=== PATIENT | male | born 1960 | race American Indian/Alaskan Native ===

== ENCOUNTER 2022-12-26 10:46 | Inpatient (IN) | payer OTHER ==
[2022-12-26] MEDS ORDERED: Sodium Chloride 0.9% 10 ML Syringe FLUSH PRN (11:02)
[2022-12-26] MEDS ORDERED: Aspirin 81 MG Tab.Chew PO ONE (11:02)
[2022-12-26] MEDS ORDERED: Diltiazem 25 MG/5 ML SDV IVPUSH ONE (11:09)
[2022-12-26] MEDS ORDERED: Diltiazem 125 MG in Sodium Chloride 0.9% 100 ML IV SCH (11:15)
[2022-12-26] MEDS ORDERED: Propofol 200 MG/20 ML SDV IVPUSH ONE (11:27)
[2022-12-26 11:37] LABS: ESTIMATED GFR 68 mL/min (>60)
[2022-12-26] MEDS ORDERED: Metoprolol Tartrate 25 MG Tab PO SCH (17:00)
[2022-12-26] MEDS: Enoxaparin 120 MG/0.8 ML Syringe SUBCUT SCH (17:32)
[2022-12-26] MEDS ORDERED: Meloxicam 7.5 MG Tab PO PRN (17:35)
[2022-12-26] MEDS ORDERED: 50% Dextrose in Water 50 ML Syringe IVPUSH PRN (17:36)
[2022-12-26] MEDS ORDERED: Metoprolol Tartrate 5 MG/5 ML SDV IVPUSH PRN (18:05)
[2022-12-26] MEDS: Insulin Regular, Human 100 Units/ML 3 ML Vial SUBCUT SCH (19:57)
[2022-12-27] MEDS: Metoprolol Tartrate 25 MG Tab PO SCH ×2 (00:03→05:47)
[2022-12-27 07:37] LABS: HEMOGLOBIN A1C 5.8 %
[2022-12-27] MEDS: Insulin Regular, Human 100 Units/ML 3 ML Vial SUBCUT SCH (08:00)
[2022-12-27] MEDS: Enoxaparin 120 MG/0.8 ML Syringe SUBCUT SCH (08:01)
[2022-12-27] MEDS ORDERED: Rosuvastatin 10 MG Tab PO SCH (09:00)
[2022-12-27] MEDS ORDERED: Rivaroxaban 10 MG Tab PO SCH (09:45)
[2022-12-28] MEDS ORDERED: Lisinopril 2.5 MG Tab PO SCH (09:00)
== END 2022-12-27 10:51 | disposition home or self-care (01) | DRG 310 ==
LOC: JD.ED 10:46 → UNDOADMIN 14:30 → JD.ICU 14:30 → JD.ED 14:59
PROVIDERS: ADMIT Internal Medicine Cardiovascular Disease; ATTEND Internal Medicine Cardiovascular Disease
PROC: 5A2204Z Restoration of Cardiac Rhythm, Single (ICD-10-PCS; principal; 2022-12-26)
DX: I48.91 Unspecified atrial fibrillation (principal); I48.0 Paroxysmal atrial fibrillation; E78.00 Pure hypercholesterolemia, unspecified; E11.9 Type 2 diabetes mellitus without complications; I10 Essential (primary) hypertension; E78.5 Hyperlipidemia, unspecified; G47.30 Sleep apnea, unspecified; E66.9 Obesity, unspecified; Z79.01 Long term (current) use of anticoagulants; Z79.899 Other long term (current) drug therapy; Z88.5 Allergy status to narcotic agent; Z68.31 Body mass index [BMI] 31.0-31.9, adult
CPT/HCPCS: 36415; 71045; 80053; 84443; 84484; 85025; 93005; A9270; J2704; J3490 ×3; 82947; 83036; 83735; 96365; 96366; 96376; 99152; 99222; 99238; 99285-25; J1650; J1815-GY

== ENCOUNTER 2023-01-11 18:10 | Emergency (ER) | payer BC, OTHER | END 2023-01-11 19:08 | disposition home or self-care (01) | LOC: JD.ED 18:10 | DX: K61.1 Rectal abscess (principal); I48.91 Unspecified atrial fibrillation; E78.00 Pure hypercholesterolemia, unspecified; I10 Essential (primary) hypertension; Z88.5 Allergy status to narcotic agent; Z79.01 Long term (current) use of anticoagulants; Z79.899 Other long term (current) drug therapy; Z72.0 Tobacco use | CPT/HCPCS: 99283 ==

== ENCOUNTER 2023-01-13 11:48 | Day surgery (SDC) | payer BC, OTHER ==
[~2023-01-13 11:48] MED LIST: Lidocaine 1% 2 ML ONE; Lidocaine 1% with EPINEPHrine 1:100,000 20 ML MDV ONE; Ondansetron 4 MG/2 ML SDV ONE; Propofol 200 MG/20 ML SDV ONE; Rocuronium 50 MG/5 ML Vial ONE; fentaNYL 100 MCG/2 ML SDV ONE
[2023-01-13] MEDS ORDERED: metroNIDAZOLE/Normal Saline 100 ML ONE (12:11)
[2023-01-13] MEDS ORDERED: Sugammadex Sodium 200 MG/2 ML VIAL ONE (12:16)
[2023-01-13] MEDS ORDERED: Ondansetron 4 MG/2 ML SDV IVPUSH PRN (12:44)
[2023-01-13] MEDS ORDERED: Ketorolac 30 MG/ML SDV IM SCH (12:46)
[2023-01-13] MEDS: fentaNYL 100 MCG/2 ML SDV IVPUSH PRN ×2 (12:55→13:11)
[2023-01-13] MEDS ORDERED: Ketorolac 30 MG/ML SDV IVPUSH SCH (12:56)
== END 2023-01-13 14:26 | disposition home or self-care (01) ==
LOC: JD.SDS 11:48
PROVIDERS: ATTEND Specialist
DX: L02.215 Cutaneous abscess of perineum (principal); I10 Essential (primary) hypertension; E78.00 Pure hypercholesterolemia, unspecified; I48.91 Unspecified atrial fibrillation; Z88.5 Allergy status to narcotic agent
CPT/HCPCS: 10061; 36415; 80048; 85025; 87070; 87075; 87205; J1885; J2405; J2704; J3010; J3490; 00902

== ENCOUNTER 2023-08-08 21:07 | Inpatient (IN) | payer BC, OTHER ==
[2023-08-08 22:21] LABS: BASOPHILS PERCENT AUTO 0.6 % (0.0-1.0); EOSINOPHILS ABSOLUTE AUTO 0.2 K/mm3 (0.0-0.4); HEMATOCRIT 42.1 % (42.0-52.0); HEMOGLOBIN 13.9 gm/dl (14.0-18.0); IMMATURE GRAN ABSOLUTE AUTO 0.01 K/mm3 (0.00-0.05); IMMATURE GRAN PERCENT AUTO 0.2 % (0.0-0.4); LYMPHOCYTES ABSOLUTE AUTO 2.3 K/mm3 (1.0-4.8); LYMPHOCYTES PERCENT AUTO 36.5 % (24.0-44.0); MEAN CORPUSCULAR HEMOGLOBIN 31.8 pg (28.0-32.0); MEAN CORPUSCULAR VOLUME 96.3 fl (83.0-99.0); MEAN PLATELET VOLUME 9.1 fl (9.4-12.4); MONOCYTES ABSOLUTE AUTO 0.5 K/mm3 (0.0-0.8); MONOCYTES PERCENT AUTO 8.5 % (0.0-8.0); NEUTROPHILS ABSOLUTE AUTO 3.3 K/mm3 (1.8-7.7); NEUTROPHILS PERCENT AUTO 51.2 % (41.0-71.0); PLATELET COUNT,PLT 256 K/mm3 (150-400); RED BLOOD CELL COUNT 4.37 M/mm3 (4.52-5.90); WHITE BLOOD CELL COUNT,WBC 6.38 K/mm3 (3.9-11.3)
[2023-08-08] MEDS ORDERED: Sodium Chloride 0.9% 10 ML Syringe FLUSH PRN (22:23)
[2023-08-08 22:40] LABS: A/G RATIO 0.9 (1-2); ALBUMIN 3.4 g/dl (3.4-5.0); ANION GAP 9.2 (5-15); BILIRUBIN TOTAL 0.3 mg/dL (0.2-1.0); BUN/CREATININE RATIO 18.2 (14-18); CALCIUM 8.9 mg/dL (8.5-10.1); CREATININE 1.1 mg/dL (0.7-1.3); EST CRCL DRUG DOSING (CG) 84.39 mL/min; POTASSIUM,K 4.2 mEq/L (3.5-5.1); PROTEIN TOTAL,TP 7.2 g/dl (6.4-8.2)
[2023-08-08] MEDS ORDERED: Iopamidol 755 Mg/ML 100 ML Bottle IVPUSH ONE (22:41)
[2023-08-08] MEDS ORDERED: Sodium Chloride 0.9% 10 ML SDV FLUSH ONE (22:41)
[2023-08-08] MEDS ORDERED: Sodium Chloride 0.9% 100 ML IV SCH (22:45)
[2023-08-09] MEDS ORDERED: Sodium Chloride 0.9% 10 ML Syringe FLUSH PRN (00:17)
[2023-08-09] MEDS ORDERED: Ondansetron 4 MG/2 ML SDV IV PRN (00:17)
[2023-08-09] MEDS ORDERED: Polyethylene Glycol 3350 Powder 17 GM Packet PO PRN (00:17)
[2023-08-09] MEDS ORDERED: Ondansetron 4 MG Tab.DIS PO PRN (00:17)
[2023-08-09] MEDS ORDERED: Acetaminophen 325 MG Tab PO PRN (00:17)
[2023-08-09] MEDS: Lactated Ringers 1,000 ML IV SCH ×2 (01:14→09:16)
[2023-08-09 05:44] LABS: BASOPHILS PERCENT AUTO 0.7 % (0.0-1.0); EOSINOPHILS ABSOLUTE AUTO 0.2 K/mm3 (0.0-0.4); EOSINOPHILS PERCENT AUTO 3.8 % (0.0-6.0); HEMATOCRIT 39.2 % (42.0-52.0); HEMOGLOBIN 12.9 gm/dl (14.0-18.0); IMMATURE GRAN ABSOLUTE AUTO 0.01 K/mm3 (0.00-0.05); IMMATURE GRAN PERCENT AUTO 0.2 % (0.0-0.4); LYMPHOCYTES PERCENT AUTO 33.6 % (24.0-44.0); MEAN CORPUSCULAR HEMOGLOBIN 31.5 pg (28.0-32.0); MEAN CORPUSCULAR HGB CONC 32.9 g/dl (32.0-36.0); MEAN CORPUSCULAR VOLUME 95.8 fl (83.0-99.0); MEAN PLATELET VOLUME 9.5 fl (9.4-12.4); MONOCYTES ABSOLUTE AUTO 0.5 K/mm3 (0.0-0.8); MONOCYTES PERCENT AUTO 8.5 % (0.0-8.0); NEUTROPHILS ABSOLUTE AUTO 3.1 K/mm3 (1.8-7.7); NEUTROPHILS PERCENT AUTO 53.2 % (41.0-71.0); PLATELET COUNT,PLT 233 K/mm3 (150-400); RED BLOOD CELL COUNT 4.09 M/mm3 (4.52-5.90); WHITE BLOOD CELL COUNT,WBC 5.86 K/mm3 (3.9-11.3)
[2023-08-09 06:11] LABS: ANION GAP 8.9 (5-15); CALCIUM 8.7 mg/dL (8.5-10.1); EST CRCL DRUG DOSING (CG) 92.83 mL/min; POTASSIUM,K 3.9 mEq/L (3.5-5.1)
[2023-08-09] MEDS: Pantoprazole 40 MG Vial IVPUSH SCH (10:35)
[2023-08-09 14:51] LABS: HEMATOCRIT 36.5 % (42.0-52.0)
[2023-08-10] MEDS: Lactated Ringers 1,000 ML IV SCH ×3 (00:55→15:13)
[2023-08-10 06:12] LABS: BASOPHILS PERCENT AUTO 0.4 % (0.0-1.0); EOSINOPHILS ABSOLUTE AUTO 0.2 K/mm3 (0.0-0.4); EOSINOPHILS PERCENT AUTO 3.9 % (0.0-6.0); HEMATOCRIT 34.5 % (42.0-52.0); HEMOGLOBIN 11.3 gm/dl (14.0-18.0); IMMATURE GRAN ABSOLUTE AUTO 0.02 K/mm3 (0.00-0.05); IMMATURE GRAN PERCENT AUTO 0.4 % (0.0-0.4); LYMPHOCYTES ABSOLUTE AUTO 1.6 K/mm3 (1.0-4.8); LYMPHOCYTES PERCENT AUTO 34.6 % (24.0-44.0); MEAN CORPUSCULAR HEMOGLOBIN 31.2 pg (28.0-32.0); MEAN CORPUSCULAR HGB CONC 32.8 g/dl (32.0-36.0); MEAN CORPUSCULAR VOLUME 95.3 fl (83.0-99.0); MEAN PLATELET VOLUME 9.5 fl (9.4-12.4); MONOCYTES ABSOLUTE AUTO 0.4 K/mm3 (0.0-0.8); MONOCYTES PERCENT AUTO 9.2 % (0.0-8.0); NEUTROPHILS ABSOLUTE AUTO 2.3 K/mm3 (1.8-7.7); NEUTROPHILS PERCENT AUTO 51.5 % (41.0-71.0); PLATELET COUNT,PLT 211 K/mm3 (150-400); RED BLOOD CELL COUNT 3.62 M/mm3 (4.52-5.90); WHITE BLOOD CELL COUNT,WBC 4.56 K/mm3 (3.9-11.3)
[2023-08-10 06:26] LABS: ALBUMIN 2.7 g/dl (3.4-5.0); ANION GAP 9.8 (5-15); BILIRUBIN TOTAL 0.7 mg/dL (0.2-1.0); BUN/CREATININE RATIO 11.1 (14-18); CALCIUM 8.4 mg/dL (8.5-10.1); CREATININE 0.9 mg/dL (0.7-1.3); EST CRCL DRUG DOSING (CG) 103.14 mL/min; POTASSIUM,K 3.8 mEq/L (3.5-5.1); PROTEIN TOTAL,TP 5.5 g/dl (6.4-8.2)
[2023-08-10] MEDS: Pantoprazole 40 MG Vial IVPUSH SCH (08:06)
[2023-08-10] MEDS ORDERED: FLU (Flulaval Quad) 2023-24(6MOS UP)/PF 60 MCG/0.5 ML Syringe IM ONE (11:00)
[2023-08-10] MEDS ORDERED: Polyethylene Glycol/Electrolytes 4,000 ML Bottle PO ONE (15:00)
[2023-08-11] MEDS: Lactated Ringers 1,000 ML IV SCH ×2 (00:06→08:05)
[2023-08-11 04:54] LABS: BASOPHILS PERCENT AUTO 0.6 % (0.0-1.0); EOSINOPHILS ABSOLUTE AUTO 0.2 K/mm3 (0.0-0.4); EOSINOPHILS PERCENT AUTO 3.9 % (0.0-6.0); HEMATOCRIT 31.5 % (42.0-52.0); HEMOGLOBIN 10.3 gm/dl (14.0-18.0); IMMATURE GRAN ABSOLUTE AUTO 0.01 K/mm3 (0.00-0.05); IMMATURE GRAN PERCENT AUTO 0.2 % (0.0-0.4); LYMPHOCYTES ABSOLUTE AUTO 1.4 K/mm3 (1.0-4.8); LYMPHOCYTES PERCENT AUTO 30.5 % (24.0-44.0); MEAN CORPUSCULAR HEMOGLOBIN 30.9 pg (28.0-32.0); MEAN CORPUSCULAR HGB CONC 32.7 g/dl (32.0-36.0); MEAN CORPUSCULAR VOLUME 94.6 fl (83.0-99.0); MEAN PLATELET VOLUME 9.6 fl (9.4-12.4); MONOCYTES ABSOLUTE AUTO 0.4 K/mm3 (0.0-0.8); MONOCYTES PERCENT AUTO 9.3 % (0.0-8.0); NEUTROPHILS ABSOLUTE AUTO 2.6 K/mm3 (1.8-7.7); NEUTROPHILS PERCENT AUTO 55.5 % (41.0-71.0); PLATELET COUNT,PLT 198 K/mm3 (150-400); RED BLOOD CELL COUNT 3.33 M/mm3 (4.52-5.90); WHITE BLOOD CELL COUNT,WBC 4.63 K/mm3 (3.9-11.3)
[2023-08-11 05:22] LABS: ANION GAP 9.6 (5-15); BUN/CREATININE RATIO 7.8 (14-18); CALCIUM 8.3 mg/dL (8.5-10.1); CREATININE 0.9 mg/dL (0.7-1.3); EST CRCL DRUG DOSING (CG) 103.14 mL/min; POTASSIUM,K 3.6 mEq/L (3.5-5.1)
[2023-08-11] MEDS: Pantoprazole 40 MG Vial IVPUSH SCH (08:04)
[2023-08-11] MEDS ORDERED: Propofol 200 MG/20 ML SDV ONE (11:36)
[2023-08-11] MEDS ORDERED: Lidocaine 1% 4 ML ONE (11:44)
== END 2023-08-11 13:56 | disposition home or self-care (01) | DRG 244 ==
LOC: JD.ED 21:07 → JD.ICU 08-09 00:17 → JD.MS 08-09 14:30
PROVIDERS: ADMIT Hospitalist; ATTEND Hospitalist
PROC: 3E0234Z Introduction of Serum, Toxoid and Vaccine into Muscle, Percutaneous Approach (ICD-10-PCS; 2023-08-10)
PROC: 0DBM8ZZ Excision of Descending Colon, Via Natural or Artificial Opening Endoscopic (ICD-10-PCS; principal; 2023-08-11 12:00)
DX: K57.31 Diverticulosis of large intestine without perforation or abscess with bleeding (principal); K63.5 Polyp of colon; I48.20 Chronic atrial fibrillation, unspecified; K92.1 Melena; I10 Essential (primary) hypertension; E78.00 Pure hypercholesterolemia, unspecified; I08.0 Rheumatic disorders of both mitral and aortic valves; Z23 Encounter for immunization; Z79.01 Long term (current) use of anticoagulants; Z79.82 Long term (current) use of aspirin; Z98.890 Other specified postprocedural states; Z88.5 Allergy status to narcotic agent; Z79.899 Other long term (current) drug therapy; Z87.81 Personal history of (healed) traumatic fracture
CPT/HCPCS: 36415; 74175; 74175-26; 80048; 80053; 85014; 85018; 85025; 86850; 86900; 86901; 90686; 93005; 93010; 93307; 99285; A9270-GY; C9113; J2704; J3490; J7120; Q9967